=== PATIENT | female | born 1990 | race African-American/Black ===

== ENCOUNTER 2017-02-03 19:00 | Emergency (ER) | payer SELFPAY ==
[2017-02-03] MEDS ORDERED: ONDANSETRON 4 MG/2 ML VIAL IVPUSH ONE (19:20)
[2017-02-03] MEDS ORDERED: SODIUM CHLORIDE 1,000 ML IV STA (19:20)
--- NOTE | 2017-02-03 19:20 | PDOC ---
History of Present Illness - History of Present Illness Initial Comments: 02/03/17 20:01 The patient is a 26 year old female, with a significant past medical history of H.Pylori, who presents to the emergency department with nausea, vomiting, diarrhea, and chills since this morning. She states she woke up nauseous. She reports eating the broth of soup that had been sitting out after work and reports vomiting shortly after. She reports two specific instances where she ran to the bathroom to vomit, but then she accidentally passed watery stool on herself simultaneously. She reports numerous episodes of both vomiting and diarrhea since the onset of her symptoms this morning. She states the emesis is yellow. She denies any abdominal pain, other than when she is actively vomiting. The patient also reports an intermittent headache throughout the day. The patient states she was "diagnosed with H.Pylori a while ago", but denies completing the prescribed medication due to an interaction with another medication she was taking at the time. SHe reports that since then, she has been experiencing frequent episodes of nausea and vomiting. She denies following up with the physician who diagnosed her with the H.Pylori because he is in [place]. She denies chest pain, shortness of breath, and dizziness. She denies fever and constipation. She denies dysuria, frequency, urgency and hematuria. Allergies: NKDA Social history: daily marijuana smoker. Occasional alcohol consumption. <Julee Connors - Last Filed: 02/03/17 20:28> <Sarah Vogel - Last Filed: 02/04/17 00:24> - General Chief Complaint: Diarrhea Stated Complaint: NAUSEA & DIARRHEA Time Seen by Provider: 02/03/17 19:17 Past History <Julee Connors - Last Filed: 02/03/17 20:28> - Psycho/Social/Smoking Cessation Hx Anxiety: No Suicidal Ideation: No Smoking History: Never smoked Hx Alcohol Use: Yes (OCCASIONAL) Drug/Substance Use Hx: No Substance Use Type: None <Sarah Vogel - Last Filed: 02/04/17 00:24> - Past Medical History Allergies/Adverse Reactions: Allergies Allergy/AdvReac Type Severity Reaction Status Date / Time No Known Allergies Allergy Verified 02/03/17 19:30 Home Medications: Ambulatory Orders Ondansetron [Zofran Odt -] 4 mg SL TID PRN #10 od.tablet 02/03/17 Review of Systems - Review of Systems Able to Perform ROS?: Yes Comments:: 02/03/17 20:01 CONSTITUTIONAL: Absent: fever, chills, diaphoresis, generalized weakness, malaise, loss of appetite HEENT: Absent: rhinorrhea, nasal congestion, throat pain, throat swelling, difficulty swallowing,mouth swelling, ear pain, eye pain, visual Changes CARDIOVASCULAR: Absent: chest pain, syncope, palpitations, irregular heart rate, lightheadedness , peripheral edema RESPIRATORY: Absent: cough, shortness of breath, dyspnea with exertion, orthopnea, wheezing, stridor, hemoptysis GASTROINTESTINAL: (+) nausea, vomiting, diarrhea, Absent: abdominal pain, abdominal distension, constipation, melena, hematochezia GENITOURINARY: Absent: dysuria, frequency, urgency, hesitancy, hematuria, flank pain, genital pain MUSCULOSKELETAL: Absent: myalgia, arthralgia, joint swelling SKIN: Absent: rash, itching, pallor HEMATOLOGIC/IMMUNOLOGIC: Absent: easy bleeding, easy bruising, lymphadenopathy, frequent infections ENDOCRINE: Absent: unexplained weight gain, unexplained weight loss, heat intolerance, cold intolerance NEUROLOGIC: (+) headache,Absent: focal weakness or paresthesias, dizziness, unsteady gait, seizure, mental status changes, bladder or bowel incontinence PSYCHIATRIC: Absent: anxiety, depression, suicidal or homicidal ideation, hallucinations. <Julee Connors - Last Filed: 02/03/17 20:28> *Physical Exam - Vital Signs Last Vital Signs Temp Pulse Resp BP Pulse Ox 98.5 F 88 16 121/70 100 02/03/17 19:33 02/03/17 19:33 02/03/17 19:33 02/03/17 19:33 02/03/17 19:33 - Physical Exam Comments: 02/03/17 20:02 GENERAL: The patient is awake, alert, and fully oriented, in no acute distress. HEAD: Normal with no signs of trauma. EYES: Pupils equal, round and reactive to light, extraocular movements intact, sclera anicteric, conjunctiva clear with no pallor. ENT: (+) Dry mucous membranes. Ears normal, nares patent, oropharynx clear without exudates. NECK: Normal range of motion, supple without lymphadenopathy, JVD, or masses. LUNGS: Breath sounds equal, clear to auscultation bilaterally. No wheeze/ crackles. HEART: Regular rate and rhythm, normal S1 and S2 without murmur or rub. ABDOMEN: Soft/nontender/nondistended. BS wnl. No guarding or rebound. No palpable masses. No hepatosplenomegaly. EXTREMITIES: Normal range of motion, no edema. No clubbing or cyanosis. No cords , erythema, or tenderness. NEUROLOGICAL: Cranial nerves II through XII grossly intact. Normal speech, normal gait. PSYCH: Normal mood, normal affect. SKIN: Warm, Dry, normal turgor, no rashes or lesions noted. <Julee Connors - Last Filed: 02/03/17 20:28> ED Treatment Course - LABORATORY CBC & Chemistry Diagram: 02/03/17 19:31 02/03/17 19:31 - Medications Given in the ED: ED Medications Discontinued Medications Generic Name Dose Route Start Last Admin Trade Name Freq PRN Reason Stop Dose Admin Ondansetron HCl 4 mg 02/03/17 19:20 02/03/17 19:25 Zofran Injection IVPUSH 02/03/17 19:21 4 mg ONCE ONE Administration <Julee Connors - Last Filed: 02/03/17 20:28> - LABORATORY CBC & Chemistry Diagram: 02/03/17 19:31 02/03/17 20:15 <Sarah Vogel - Last Filed: 02/04/17 00:24> Progress Note - Progress Note Progress Note: Documentation has been prepared under my direction and personally reviewed by me in its entirety. I attest that this documented accurately reflects all work, treatment, procedures and medical decision making performed by me. <Sarah Vogel - Last Filed: 02/04/17 00:24> Medical Decision Making - Medical Decision Making As noted above, this 26-year-old woman presents with a one-day history of nausea /vomiting/diarrhea. No recent travel or known sick contacts. Patient did have soup last night that may have been spoiled. Exam notable for dry mucous membranes; abdominal exam is normal without hyperactive bowel sounds or masses/ tenderness. Patient received 2 L of normal saline with 4 mg of Zofran IV. Because of one episode of loose stool while here in the emergency room, she received 4 mg of Imodium by mouth. Laboratory evaluation showed no significant electrolyte abnormalities; specific gravity of urine is 1.025, suggestive of mild dehydration. After fluid hydration, Imodium and IV Zofran, the patient was much more comfortable and tolerated small amount of oral liquids. Patient will be discharged with prescription for Zofran ODT 4 mg to be taken up to 3 times a day as needed for persistent nausea. She should maintain clear liquid diet and advance cautiously. Because the patient has had a history of H. pylori and has not had any follow-up since treatment (which was not completed as per the patient), she will receive referral information for local medical care. The patient currently does not have any insurance. She will be given [facility] ([address] [place] [address]/[place]) for general medical follow-up. She has been advised to follow up within 1 week. She should return to the ER if she has persistent vomiting or develops abdominal pain/fever. <Sarah Vogel - Last Filed: 02/04/17 00:24> *DC/Admit/Observation/Transfer - Attestations Scribe Attestion: 02/03/17 20:03 Documentation prepared by Julee Connors, acting as medical collections representative for Sarah Vogel MD <Julee Connors - Last Filed: 02/03/17 20:28> <Sarah Vogel - Last Filed: 02/04/17 00:24> Diagnosis at time of Disposition: Acute gastroenteritis - Discharge Dispostion Disposition: HOME Condition at time of disposition: Good - Prescriptions Prescriptions: Ondansetron [Zofran Odt -] 4 mg SL TID PRN #10 od.tablet PRN Reason: Nausea - Referrals Referrals: [facility] [Provider Group] - 02/06/17 - Patient Instructions Printed Discharge Instructions: DI for Viral Gastroenteritis -- Adult Additional Instructions: Clear liquids; advance diet cautiously Zofran ODT 4 mg up to 3 times a day as needed for nausea Imodium 2 mg after each loose stool up to 4 tabs a day Return to ER if you have persistent vomiting or develop fever/pain followup with [facility] within 3-4 days - Post Discharge Activity Work/School Note: Back to Work
[2017-02-03] MEDS ORDERED: ONDANSETRON 4 MG/2 ML VIAL ONE (19:27)
[2017-02-03 19:59] VITALS: BP 121/70; PULSE 88; TEMP 98.5; BMI 35.4
[2017-02-03 20:01] LABS: BASOPHIL 1.4 % (0-2.0); EOSINOPHIL 1.6 % (0-4.5); MCHC 32.3 g/dl (32.0-36.0); MEAN CELL VOLUME 71.3 fl (80-96); MEAN PLT VOLUME 10.8 fl (7.5-11.1); NEUTROPHILS 59.7 % (42.8-82.8); PLATELET COUNT 277 K/MM3 (134-434); RDW 14.7 % (11.6-15.6); WHITE BLOOD COUNT 5.2 K/mm3 (4.0-10.8)
[2017-02-03 20:21] LABS: PH,URINE 5.5 (4.5-8); URINE APPEARANCE Clear; URINE BILIRUBIN 1+ (NEGATIVE); URINE GLUCOSE (UA) Negative (NEGATIVE); URINE KETONE 1+ (NEGATIVE); URINE LEUK ESTERASE Negative (NEGATIVE); URINE NITRITE Negative (NEGATIVE); URINE PROTEIN Trace (NEGATIVE); URINE UROBILINOGEN 0.2 E.U/dl (0.2-1.0)
[2017-02-03 20:22] LABS: URINE BLOOD 3+ (NEGATIVE); URINE COLOR YELLOW
[2017-02-03] MEDS ORDERED: LOPERAMIDE HCL 2 MG CAPSULE PO ONE (20:23)
[2017-02-03] MEDS ORDERED: LOPERAMIDE HCL 2 MG CAPSULE ONE (20:23)
[2017-02-03] MEDS ORDERED: SODIUM CHLORIDE 1,000 ML IV ONE (20:26)
[2017-02-03 20:29] LABS: URINE BACTERIA FEW /hpf (NEGATIVE); URINE RBC 20-40 /hpf (0-3); URINE WBC 0-2 (3-5)
[2017-02-03 20:42] LABS: ALK PHOS 58 U/L (32-92); ANION GAP 7 (8-16); BILIRUBIN,TOTAL 0.9 mg/dl (0.2-1.0); CALCIUM 8.9 mg/dl (8.4-10.2); CO2 21 mmol/L (22-28); CREATININE 0.6 mg/dl (0.6-1.3); GLUCOSE,RANDOM 88 mg/dl (74-106); SGOT/AST 15 U/L (10-42); SGPT/ALT 13 U/L (10-40); TOT PROT 6.5 g/dl (6.4-8.3)
== END 2017-02-03 22:59 | disposition home or self-care (01) ==
LOC: FER 19:00
DX: K52.9 Noninfective gastroenteritis and colitis, unspecified (principal)
CPT/HCPCS: 36415; 80053; 81003; 81015; 83690; 84703; 85025; 99282-25